=== PATIENT | female | born 1950 | race Caucasian/White ===

== ENCOUNTER 2018-03-06 09:57 | Inpatient (IN) ==
--- NOTE | 2018-03-06 08:33 | Anesthesia Evaluation PreOp ---
Date of Encounter: 03/06/18 Time of Encounter: 11:07 - Past History Planned Operation: Right CEA Cardiac History: HTN, Hyperlipidemia, Other (H/O DVT) Pulmonary History: Denies Any Significant HX [employer] History: Denies Any Significant HX Anesthesia History: No Prior Anesthetic Complications, Past Anesthesia ( hysterectomy) Alcohol Use: occasionally Drug use: none Medications and Allergies Ascorbate Calcium [Vitamin C] 500 mg PO DAILY 12/24/16 [History] Aspirin Enteric Coated [Aspirin EC] 325 mg PO DAILY 12/24/16 [History] Atenolol [Tenormin] 25 mg PO DAILY 12/24/16 [History] Benazepril/Hydrochlorothiazide [Lotensin Hct 20-25 mg Tablet] 1 each PO BID 06/30 [History] Calcium Carbonate/Vitamin D3 [Calcium 500 + Vit D Caplet] 1 tab PO DAILY [History] Cholecalciferol (D-3) [Vitamin D] 1,000 mg PO DAILY 12/24/16 [History] Glucosamine Sulfate Dipot Chlr [Glucosamine] 1,000 mg PO DAILY 12/24/16 [History ] Iron Complex 1 tab PO 3XW 12/24/16 [History] Mv W-Ca/Iron/FA/Lutein/Hrb#179 [Mark Multivit For Women Caplet] 1 tab PO DAILY 12/24/16 [History] raNITIdine HCl [Zantac] 150 mg PO DAILY PRN 12/24/16 [History] Docusate [Colace] 100 mg PO BID capsule 12/25/16 [Rx] Ibuprofen [Motrin] 600 mg PO Q6HR PRN #30 tablet 12/25/16 [Rx] OxyCODONE/APAP 5/325 [Percocet 5/325 MG] 1 each PO Q4HR PRN #30 tablet 12/25/16 [Rx] 3 Allergy/AdvReac Type Severity Reaction Status Date / Time Sulfa (Sulfonamide AdvReac Unknown See Verified 12/24/16 12:22 Antibiotics) Comments - Meds/Allergy Pre-op Review Medications Reviewed: Yes Allergies Reviewed: Yes Beta Blockers on Current Med List: Yes If Beta Blockers taken, Date/Time (Last Dose taken): 03/05/2018 at 1630 Anesthesia Results - Labs Laboratory Tests 02/19/18 02/19/18 02/19/18 10:23 10:23 10:23 WBC 5.3 Hgb 13.2 Hct 40.1 Plt Count 226 PT 11.7 INR 1.0 APTT 25.9 L Sodium 139 Potassium 3.9 BUN 13 Creatinine 0.89 - Imaging EKG: report reviewed (05/10/2016 SR, PVC's) Additional studies: 01/01/2018 Stress Impression: Pharmacologic stress ECG is negative for ischemia at level of heart rate achieved. Gated EF = 67%. Perfusion imaging was negative for ischemia or infarct. Findings: Stress Note * Resting ECG demonstrated normal sinus rhythm. * Occasional PVCs noted prior to exam beginning. * Pharmacologic stress ECG is negative for ischemia at level of heart rate achieved. * No arrhythmias were noted during stress. Occasional PVCs in recovery. * Patient had no chest pain during stress. Hemodynamic responses * Normal hemodynamic responses to pharmacologic stress. Study Quality * Study quality is average. Gated EF % * Gated EF = 67%. Left Ventricle * The left ventricle is not dilated. * LVEDV = 116 mL. NORMALS * Normal wall motion. * Normal Segmental Perfusion in rest. * Normal segmental perfusion in stress. TID * No evidence of transient ischemic dilatation. TID ratio * TID ratio = 1.17. Lung Uptake * There is no evidence of increase lung uptake. Anesthesia Exam O2 Sat Height 1.78 m Height 1.78 m Weight 88.451 kg Weight 88.451 kg O2 Sat by Pulse Oximetry 98 Vital Signs Temp Pulse Resp BP Pulse Ox 97.9 F 57 18 178/71 98 03/06/18 10:24 03/06/18 10:24 03/06/18 10:24 03/06/18 10:24 03/06/18 10:24 Height: 5'10" Weight: 195 lbs NPO (# of Hours): 8 Pain Scale: 0 Pain Scale Used: Numeric (1 - 10) - HEENT Pupil (Motor): EOMI Mallampati: III Teeth: Normal Oral Opening: Greater than 3 - [employer] LOC: Oriented [employer] Motor: Normal RUE, Normal LUE, Normal RLE, Normal LLE, Normal Face [employer] Sensory: Normal: RLE, LLE, Face, Deficit: RUE (numbness), LUE (numbness) - Cardiac Rhythm: Regular Murmur: None - Pulmonary Breath Sounds: bilateral Clear Respiratory Effort: Symmetrical Anesthesia Assess/Plan ASA Score: 2 Modified Catalina Scale for Level of Consciousness: Cooperative, oriented, and tranquil Anesthetic Plan: General Monitoring Plan: Standard Monitors, A-Line Recovery Plan: PACU
[~2018-03-06 09:57] MED LIST: Vancomycin 1,000 MG, Sodium Chloride IRRigation 1,000 ML IR ONE
[2018-03-06] MEDS ORDERED: CeFAZolin Syr 2,000MG/20 ML 2,000 MG/20 ML SYRINGE IVPB ONE (10:17)
[2018-03-06] MEDS ORDERED: Ringers Solution, Lactated 1,000 ML IVC SCH (10:30)
[2018-03-06] MEDS ORDERED: Heparin 1,000 UNITS/500 mL 500 ML ONE (10:43)
[2018-03-06] MEDS ORDERED: *HR* Midazolam HCl 2 MG/2 ML VIAL ONE (11:11)
[2018-03-06] MEDS ORDERED: *HR* Propofol 200 MG/20 ML VIAL IVP ONE (11:13)
[2018-03-06] MEDS ORDERED: *HR* FentaNYL (PF) 100 MCG/2 ML VIAL ONE (11:13)
[2018-03-06] MEDS ORDERED: Lidocaine -MPF 2% 2 ML VIAL ONE (11:17)
[2018-03-06] MEDS ORDERED: *HR* Succinylcholine 200 MG/10 ML VIAL IVP ONE (11:17)
[2018-03-06] MEDS ORDERED: Lidocaine -MPF 4% 5 ML AMPUL ONE (11:19)
--- NOTE | 2018-03-06 12:00 | History & Physical Report ---
Date of Encounter: 03/06/18 Time of Encounter: 11:50 24 Hour HP Update - Instructions Instructions: If the History and Physical is less than 30 days old and was completed prior to A.M. admission and or procedure and has NOT been updated on calendar day of procedure please complete this update prior to performing procedure. - Update Patient reports changes in Medical Condition: No Changes in examination, assessment, or condition: No Changes in Medication: No Preop tests/diagnostics Reviewed: Yes Surgery Remains Indicated: Yes Consent for Planned Operative Procedure(s) Verified: Yes - Pre-Operative Checklist Preoperative Checklist Indicated: Yes Prophylactic Antibiotic Ordered: Yes (vancomycin due to risk of MRSA) Home Medications Include Beta Rojelio: Yes Beta Rojelio Taken Today (Day of Surgery): Yes Beta Rojelio Taken Yesterday (Day Prior to Surgery): Yes Is VTE Prophylaxis Indicated?: Yes
[2018-03-06] MEDS ORDERED: Lidocaine 1% 20 ML MDV ONE (12:21)
[2018-03-06] MEDS ORDERED: EPHEDrine 50 MG/ML VIAL ONE (12:21)
[2018-03-06] MEDS ORDERED: Bupivacaine-MPF 0.25% 10 ML VIAL ONE (12:21)
[2018-03-06] MEDS ORDERED: Heparin 1,000 UNITS/500 mL 1,000 ML ONE (12:21)
[2018-03-06] MEDS ORDERED: Protamine Sulfate 50 MG/5 ML VIAL IVP ONE (12:21)
[2018-03-06] MEDS ORDERED: *HR* Remifentanil 1 MG VIAL IVP ONE (12:23)
[2018-03-06] MEDS ORDERED: Acetaminophen 325 MG TABLET PO PRN (13:23)
[2018-03-06] MEDS ORDERED: Ondansetron 4 MG/2 ML VIAL IVP PRN (13:23)
[2018-03-06] MEDS ORDERED: OXYCODONE Oral CONC 10 MG/0.5 ML ORAL.SYG SL PRN ×2 (13:23)
[2018-03-06] MEDS ORDERED: Naloxone 0.4 MG/ML INJ IVP PRN (13:23)
[2018-03-06] MEDS ORDERED: *HR* HYDROcodone/Acet 5/325 mg TABLET PO PRN (13:23)
[2018-03-06] MEDS ORDERED: *HR* Labetalol 20 MG/4 ML SYRINGE IVP PRN ×3 (13:26→15:22)
[2018-03-06] MEDS ORDERED: 0.9 % Sodium Chloride 1,000 ML IVC SCH (13:30)
[2018-03-06] MEDS ORDERED: *HR* Heparin 5,000 UNIT/ML VIAL ONE ×2 (14:02→14:27)
[2018-03-06] MEDS ORDERED: Ondansetron 4 MG/2 ML VIAL ONE (14:03)
[2018-03-06] MEDS ORDERED: Dexamethasone 4 MG/ML VIAL ONE (14:03)
[2018-03-06] MEDS ORDERED: *HR* OxyCODONE Immed Rel 5 MG TABLET PO PRN ×2 (15:03→15:22)
[2018-03-06] MEDS ORDERED: Ondansetron 4 MG/2 ML VIAL IVP ONE ×2 (15:03→15:22)
[2018-03-06] MEDS ORDERED: *HR* Morphine 2 MG/ML SYRINGE IVP PRN ×2 (15:03→15:22)
--- NOTE | 2018-03-06 16:31 | Operative Note ---
Date of procedure: 03/06/18 Pre-op diagnosis: 80-99% right internal carotid artery stenosis Post-op diagnosis: same Procedure: Right carotid endarterectomy was Hemashield patch angioplasty Complications: None Anesthesia: GETA Surgeon: Reg Emanuel Was there an assistant professor of english present: No Estimated blood loss (cc): 50 Specimen: Right carotid plaque Condition: stable Disposition: PACU Procedure in Detail: Indications: The patient is a 67-year-old female with a history of hypertension and hyperlipidemia. She is found have an 80% right internal carotid artery stenosis. Carotid endarterectomy was recommended to reduce her risk of a cerebrovascular accident. Procedure: The patient was identified in the preoperative area. The risks, benefits, and alternatives of the procedure were discussed and all questions were answered. The patient was then taken to the operating room and placed in supine position on the operating table. After the induction of general endotracheal anesthesia, the patient was cleaned and draped in normal sterile fashion. A longitudinal incision was made anterior to the right sternocleidomastoid muscle. Hemostasis was obtained via electrocautery. Through a process of blunt , sharp, and electrocautery dissection, the platysma was traversed and the jugular vein was identified. The facial vein was dissected, clamped, divided and ligated with a 2-0 silk suture ligature. The jugular vein was retracted to expose the carotid bifurcation. The patient received 2000 units of heparin intravenously at this time. Proximal dissection of the common and external carotid arteries were performed circumferentially. Dissection of the internal carotid was performed circumferentially. Vessels loops were passed around the internal and external carotid and an umbilical tape was passed from the common carotid artery. The patient received additional 3000 units of heparin intravenously. After waiting adequate time for the heparin to circulate, the vessels were occluded and a longitudinal arteriotomy was made into the common carotid artery and extended into the internal carotid beyond the plaque. The plaque was long, extended distally and was heavily calcified. Vigorous pulsatile retrograde flow was noted from the internal carotid artery upon release of the vessel loop. This was consistent with adequate retrograde pressure. Therefore a shunt was not placed.. A dental [place] was then used to perform a standard endarterectomy. Proximal and distal endpoints were inspected. No elevated flaps were noted. Additional heparin was given during the procedure to maintain adequate anticoagulation. A Hemashield patch was cut to fit the defect and sutured in place with running 6 -0 Prolene. Prior to completing the closure, each vessel was flushed and then reoccluded. Heparinized saline was infused into the lumen. The patch was completed. Flow was restored in the external carotid artery, followed the common carotid artery, lastly the internal carotid artery was opened. A low resistance arterialized signal was present within the internal carotid artery beyond the patch. Thrombin and Gelfoam were used to aid in hemostasis. Meticulous hemostasis was obtained throughout the wound with electrocautery. Platelet rich and platelet poor plasma were infused into the wounds. The sternocleidomastoid was reapproximated with interrupted 3-0 Vicryl. Platelet rich and platelet poor plasma were infused into the wound. A TLS drain was brought through a separate stab incision and sutured in place with 0 silk suture. The platysma was reapproximated with running 3-0 Vicryl. Local anesthetic was infused in the skin. A 3-0 Monocryl was used to reapproximate the skin. A sterile dressing was applied. The patient was extubated, taken to the recovery room in stable condition.
--- NOTE | 2018-03-06 16:36 | Anesthesia Evaluation Post Op ---
Date of Encounter: 03/06/18 Time of Encounter: 16:33 - Vital Signs Vital Signs: vss, patient was seen prior to discharge from PACU. - Lungs Lungs: Clear Ascult./Percussion - Airway Airway: Non-obstructed - Mental Status Mental Status: Asleep with brisk response to light stimulation - Pain Pain Scale used: Du-Thierry (Faces) (tolerable) - Nausea Vomiting Nausea Vomiting: Not Present - Hydration Hydration: Ice chips - Discharge PostOp Status: Transfer Patient to floor
[2018-03-06] MEDS: *HR* OxyCODONE Immed Rel 5 MG TABLET PO PRN (18:16)
[2018-03-06] MEDS: *HR* Metoprolol 5 MG/5 ML VIAL IVP SCH ×2 (18:16→23:36)
[2018-03-07] MEDS ORDERED: *HR* Heparin 5,000 UNIT/ML VIAL SQ SCH (06:00)
[2018-03-07] MEDS: *HR* Metoprolol 5 MG/5 ML VIAL IVP SCH (06:26)
--- NOTE | 2018-03-07 07:02 | Discharge Summary ---
Orders not resulted at time of discharge: Pending orders 03/06/18 15:42 Surgical Pathology [PTH] Routine Date of Encounter: 03/07/18 Time of Encounter: 07:40 - Discharge Diagnosis (1) Carotid stenosis, right Priority: Primary Status: Chronic Comments: The patient is postoperative day #1 after right carotid endarterectomy. Her incision is healing well. She has no neurologic deficits. She is able to tolerate a diet. Her pain is well-controlled. She will be discharged today. (2) Mixed hyperlipidemia Priority: Secondary Status: Chronic Comments: She was counseled regarding atherosclerotic risk factor reduction. (3) Essential hypertension Priority: Secondary Status: Chronic - Hospital Course Hospital course: Ms. Levin is a 67 year old female with history of hypertension and hyperlipidemia. She is found have an 80% right internal carotid stenosis. She was admitted on 03/06/2018 and underwent a right carotid endarterectomy. On postoperative day 1 she was tolerating a diet. Her incision was healing. She was without neurologic deficits. She is discharged to home in stable condition on postoperative day #1 without competitions. - Time Spent with Patient Total time spent providing and/or coordinating discharge services: - Discharge Medications Prescriptions: OxyCODONE/APAP 5/325 [Percocet 5/325 MG] 1 each PO Q6HR PRN 5 Days #20 tablet PRN Reason: Postoperative pain Home Medications: Ascorbate Calcium [Vitamin C] 500 mg PO DAILY 12/24/16 [History] Aspirin Enteric Coated [Aspirin EC] 325 mg PO DAILY 12/24/16 [History] Cholecalciferol (D-3) [Vitamin D] 1,000 mg PO DAILY 12/24/16 [History] Glucosamine Sulfate Dipot Chlr [Glucosamine] 1,000 mg PO DAILY 12/24/16 [History ] Iron Complex 1 tab PO 2XW 12/24/16 [History] Mv W-Ca/Iron/FA/Lutein/Hrb#179 [Mark Multivit For Women Caplet] 1 tab PO DAILY 12/24/16 [History] Acetaminophen [Tylenol] 1,000 mg PO DAILY PRN 03/06/18 [History] Atorvastatin [Lipitor] 10 mg PO DAILY 03/06/18 [History] Benazepril/Hydrochlorothiazide [Lotensin Hct 20-12.5 mg Tablet] 1 each PO BID [History] Metoprolol Succinate [Toprol Xl] 100 mg PO DAILY 03/06/18 [History] OxyCODONE/APAP 5/325 [Percocet 5/325 MG] 1 each PO Q6HR PRN 5 Days #20 tablet [Rx] Allergies/Adverse Reactions: 3 Allergy/AdvReac Type Severity Reaction Status Date / Time Sulfa (Sulfonamide AdvReac Unknown See Verified 12/24/16 12:22 Antibiotics) Comments Date of admission: 03/06/18 16:35 Primary care physician: Leonor Aguilar CNP Procedure(s) Performed: Right carotid endarterectomy Discharging clinician: Reg Emanuel Anticipated date of discharge: 03/07/18 Exam Vital Signs, Last 4 Hours Temp Pulse Resp BP Pulse Ox 03/07/18 03:24 98.1 F 63 15 126/75 94 General: Present: Conversant, No Apparent Distress HEENT: Present: Trachea midline, Pupils equal Neck: Present: Other (Incision clean, dry and intact without erythema or drainage, no hematoma). Absent: JVD Cardiac: Present: Reg Rate and Rhythm, Normal S1 and S2 Lungs: Present: Normal Breath Sounds, No Wheeze, Rales, Rhonchi Neuro: Present: Alert and responsive, No focal deficits noted, Motor nerves grossly intact, Sensory nerves grossly intact Abdomen: Present: Soft Vascular: Present: Normal capillary refill. Absent: Cyanosis, Edema Skin: Present: No rashes noted on visualized skin - Patient Status Disposition: Home, Self-Care Condition: Good Functional capacity at discharge: independent ambulation Overall status at discharge: patient is back to baseline - Discharge Instructions Instructions: Oxycodone/Acetaminophen (By mouth), Carotid Endarterectomy (DC), Carotid Artery Disease (DC) Follow Up With: Reg Emanuel MD [Partnered Physician] - 04/15/18 2:20 pm Leonor Aguilar CNP [Primary Care Provider] - 03/13/18 9:00 am Additional Instructions: If you have questions that are not answered by these instructions, please call your nurse or doctor. You have just had Carotid Endarterectomy surgery to remove harmful plaque from your carotid arteries. Risk Factors * If you smoke, STOP. Smoking or tobacco use significantly increases your risk of carotid artery disease because nicotine causes the arteries to narrow or constrict. It also causes fats to stick to th artery. Your chances of having a stroke are greatly increased if you continue to smoke. Fr more information call the patient education line for smoking cessation 8-741-OEDQ-NOW. Lifting * Do not lift anything over 5 pounds or a half (1/2) gallon of milk. * Do not strain or flex your neck backwards. Bathing * If you still have a neck dressing keep it clean and dry. * It is okay to take a tub bath. Avoid soaking your incision. Activity * You may walk or clim stairs as tolerated Driving * Do not drive for one week or until your follow-up appointment. Diet as tolerated Site Care * If you have sally, leave incision open to air. * If you have steri-strips, let them fall off. Do not pull them off. * Clean with soap and water. Contact your doctor if: * Your neck feels swollen or you have trouble swallowing when you eat or drink. * Your incision becomes red or has yellow or green drainage (pus). * You develop a fever greater than 101 degrees. * If you have questions or concerns. Bleeding * Although the risks of bleeding is minimal, it can happen. If you have any bleeding, apply firm pressure over your incision site. If the bleeding does not stop call 911 and continue to hold pressure. DO NOT DRIVE YOURSELF to the hospital. * To prevent bleeding, apply pressure to the site for 2 days when coughing, sneezing or laughing. May remove bandage and shower on 03/08/2018. Wash wound gently and pat to dry. No driving for [address] Emanuel at [phone] with questions or concerns. - Diet and Activity Activity: increase activity as tolerated - VTE Documentation of Mechanical Device: Intermittent pneumatic compression device
[2018-03-07 07:27] VITALS: BP 137/71
[2018-03-07] MEDS: *HR* OxyCODONE Immed Rel 5 MG TABLET PO PRN (08:07)
== END 2018-03-07 10:13 | disposition home or self-care (01) | DRG 39 ==
LOC: SAMDAY 09:57 → 2NNU 16:35
PROVIDERS: ADMIT Surgery; ATTEND Surgery